=== PATIENT | male | born 1945 | race Caucasian/White ===

== ENCOUNTER → 2018-11-12 | Outpatient (CLI) | payer SELFPAY ==
--- NOTE | 2018-11-12 11:23 | PCVCIMAG ---
APPROVED REPORT Study performed: 11/12/2018 07:40:35 EXAM: Comprehensive 2D, Doppler, and color-flow Echocardiogram Patient Location: Echo lab Status: routine BSA: 1.65 HR: 57 bpmBP: 140/82 mmHg Rhythm: Bradycardia Other Information Study Quality: Adequate Indications Pre-Chemo Bradycardia Dyspnea 2D Dimensions IVSd: 11.24 (7-11mm) LVDd: 40.77 mm PWd: 9.64 (7-11mm)Ascending Ao: 37.34 (22-36mm) LVDs: 28.01 (25-40mm) Left Atrium: 29.52 (27-40mm) Aortic Root: 36.84 mm LV Single Plane 4CH: 59.37 % LV Single Plane 2CH: 54.02 % Biplane EF: 55.8 % Volumes Left Atrial Volume (Systole) Single Plane 4CH: 57.46 mLSingle Plane 2CH: 60.67 mL LA ESV Index: 36.00 mL/m2 Aortic Valve AoV Peak Regulo.: 1.24 m/s AO Peak Gr.: 6.18 mmHgLVOT Max P.21 mmHg LVOT Max V: 1.03 m/s AI Vmax: 4.39 m/s AI Ralls: 2.52 m/s2 AI PHT: 511.14 ms Mitral Valve E/A Ratio: 0.8 MV Decel. Time: 349.16 ms MV E Max Regulo.: 0.55 m/s MV A Regulo.: 0.66 m/s IVRT: 121.11 ms Pulmonary Valve PV Peak Regulo.: 0.95 m/sPV Peak Gr.: 3.61 mmHg Pulmonary Vein P Vein S: 0.37 m/sP Vein A: 0.32 m/s P Vein D: 0.45 m/sP Vein A Dur.: 162.6 msec P Vein S/D Ratio: 0.82 Tricuspid Valve TR Peak Regulo.: 2.66 m/s TR Peak Gr.: 28.26 mmHg TV Vmax: 0.52 m/s Left Ventricle The left ventricle is normal size. There is normal LV segmental wall motion. There is normal left ventricular wall thickness. Left ventricular systolic function is normal. The left ventricular ejection fraction is within the normal range. LVEF is 55-60%. Grade I - abnormal relaxation pattern. Right Ventricle The right ventricle is normal size. The right ventricular systolic function is normal. Atria Left atrium is mildly dilated. The right atrium size is normal. Aortic Valve The aortic valve is normal in structure. Moderate aortic regurgitation. There is no aortic valvular stenosis. Mitral Valve The mitral valve is normal in structure. Moderate mitral regurgitation. No evidence of mitral valve stenosis. Tricuspid Valve The tricuspid valve is normal in structure. Mild tricuspid regurgitation with PAP of 35 mmHg. Pulmonic Valve The pulmonary valve is normal in structure. There is no pulmonic valvular regurgitation. Great Vessels Aortic root is borderline dilated. The ascending aorta is borderline dilated. IVC is normal in size and collapses >50% with inspiration. Pericardium There is no pericardial effusion. There is no pleural effusion. <Conclusion> The left ventricle is normal size. LVEF is 55-60%. Left atrium is mildly dilated. The aortic valve is normal in structure. Moderate aortic regurgitation. The mitral valve is normal in structure. Moderate mitral regurgitation. The tricuspid valve is normal in structure. Mild tricuspid regurgitation with PAP of 35 mmHg. The pulmonary valve is normal in structure. Aortic root is borderline dilated. The ascending aorta is borderline dilated. There is no pericardial effusion.
== END | disposition home or self-care (01) ==
LOC: PCVCIMAG 09:12
PROVIDERS: ATTEND Internal Medicine
DX: I08.3 Combined rheumatic disorders of mitral, aortic and tricuspid valves (principal)
CPT/HCPCS: 93306